=== PATIENT | female | born 1955 | race Caucasian/White ===

== ENCOUNTER 2023-07-28 12:34 | Emergency (ER) | payer MEDICARE, SELFPAY ==
[2023-07-28 13:22] VITALS: BP 127/83; PULSE 93; RESP 22; TEMP 36.1; O2SAT 97; BMI 37.8
--- NOTE | 2023-07-28 13:23 | ED.URI ---
HPI - URI/Sore Throat General Chief Complaint: Upper Respiratory Symptoms Stated Complaint: SOB/Cough/Cold symptoms Time Seen by Provider: 07/28/23 19:49 History of Present Illness HPI Narrative: 68 y/o F patient presents from home with report of a few days of URI symptoms. The patient [place] in an [place] with + sick contacts. She reports today she was having a productive cough, difficulty breathing, and congestion so she tried to go to a walk in center and then to her PCP but neither had availability for the day. She denies: chest pain, nausea/vomiting, abdominal pain, diarrhea, headache. Related Data Allergies Allergy/AdvReac Type Severity Reaction Status Date / Time aspirin Allergy Unknown rash Verified 07/28/23 13:22 penicillin V Allergy Unknown rash Verified 07/28/23 13:22 sulfur Allergy Unknown Rash Verified 07/28/23 13:22 ZyrTEC Allergy Unknown rash Uncoded 09/12/17 00:00 Review of Systems Review of Systems: Yes all other systems are reviewed and are negative PMFSH Past Medical History Attestation statement: The following information was validated with the patient. Source: old records reviewed Onset Date is defined in the Problem List Problems that require an onset date and time if occurred within 24 hrs of arrival to the ED Aortic Dissection and Rupture; Neurologic impairment; Cardiopulmonary Arrest; Endotracheal Intubation; Insertion or Replacement of Mechanical Circulatory Assist Device Social History Social History Advance Directives: No Advance Directives Information Provided: No Physical Exam Vital Signs: Vital Signs: Last Vital Signs Temp 97.0 F 07/28/23 13:22 Pulse 102 H 07/28/23 14:48 Resp 22 H 07/28/23 14:48 BP 127/83 07/28/23 13:22 Pulse Ox 97 07/28/23 13:22 O2 Del Method Room Air 07/28/23 13:22 BMI result Body Mass Index 37.8 Patient is afebrile, mildly tachycardic and tachypnic. Const: General: cooperative HEENT: Head: Yes atraumatic Eyes: General: appearance normal, both eyes and all related structures Pupils: Equal, round and reactive pupils present EOM: EOMs intact bilaterally Neck: Neck: Yes full ROM, Yes supple and No tender Chest: Chest palpation & inspection: normal inspection of the chest and normal palpation of entire chest wall Resp: Effort & Inspection: normal respiratory effort, able to speak in complete sentences, no audible wheezes, Actively coughing and respiratory effort not decreased Auscultation: clear to auscultation bilaterally Cardio: Rate: regular rate Rhythm: regular rhythm Peripheral pulses: Peripheral pulses 2+ throughout GI: Inspection: Yes normal to inspection, No Abdominal wall edema and No distended Palpation (GI): Soft to palpation, not firm, nontender and not rigid Back/Spine/Pelvis: Back: No back tenderness Neuro: Cranial nerves: Yes Equal, round and reactive pupils present Course Course Course Narrative: RME: 68 yo F w/ PMHx DM, HLD, presenting to the ED c/o productive cough, SOB, congestion x weeks. Saw PCP couple weeks and was given Abx (which she finished 2 weeks ago) w/o relief. +expiratory wheeze & persistent cough appreciated. CXR, Viral testing & ED Bronch protocol ordered Full HPI, ROS and PE to be performed by primary ED provider. Reevaluation(s) Reevaluation #1: Patient evaluated by this provider following ED bronch protocol - lungs now clear. Patient is in no respiratory distress. Able to speak in full sentences without difficulty. Patient informed she tested positive for RSV today. CXR without evidence of associated pneumonia. Discussed symptomatic management with patient. Plan: Discharge to home with PCP follow up Return precautions given Medications Administered Discontinued Medications Generic Name Dose Route Start Last Admin Trade Name Freq PRN Reason Stop Dose Admin Albuterol Sulfate 8 puff 07/28/23 14:44 07/28/23 14:47 Albuterol Sulfate 90 Mcg 8 Gm Inhaler INHALE 07/28/23 14:45 8 puff ONCE ONE Administration Medical Decision Making Lab Data Labs: Lab Results 07/28/23 Range/Units 13:49 Influenza Type A (PCR) NEGATIVE (Negative) Influenza Type B (PCR) NEGATIVE (Negative) RSV RNA Qual (PCR) POSITIVE A (Negative) SARS-CoV-2 RNA (RT-PCR) NEGATIVE (Negative) Radiology Impression Discussion of test interpretation with radiology: I have reviewed the radiologist's reading. Radiologist Impression: EXAMINATION: XR CHEST 2 VIEW CLINICAL INFORMATION: Cough and shortness of breath COMPARISON: None TECHNIQUE: PA and lateral views of the chest obtained. FINDINGS: The lungs are clear. There are no pleural effusions. The cardiomediastinal silhouette is normal. XR/XR chest 2V IMPRESSION: No acute cardiopulmonary disease. Discharge Plan Discharge Clinical Impression: Respiratory syncytial virus (RSV) Patient Disposition: Home, Self-Care Instructions: Viral Syndrome (ED) Additional Instructions: As we discussed, you were seen in the emergency department today for an upper respiratory tract infection. You tested positive for RSV. Your CXR did not show pneumonia. Please follow up with your PCP within the next 1 week for re-evaluation. Return to the ED for difficulty breathing, chest pain, or passing out.
[2023-07-28 14:48] VITALS: PULSE 102; RESP 22; O2SAT 98
[2023-07-28 20:24] VITALS: BP 118/70; PULSE 122; RESP 20; TEMP 37.2; O2SAT 93
== END 2023-07-28 20:38 | disposition home or self-care (01) ==
PROVIDERS: Emergency Provider Emergency Medicine; PCP Internal Medicine
DX: J22 Unspecified acute lower respiratory infection (principal); B97.4 Respiratory syncytial virus as the cause of diseases classified elsewhere; R05.9 Cough, unspecified; R06.02 Shortness of breath; Z20.822 Contact with and (suspected) exposure to COVID-19; Z20.828 Contact with and (suspected) exposure to other viral communicable diseases
CPT/HCPCS: 0241U; 71046; 94640; 99284